=== PATIENT | female | born 1975 | race Caucasian/White ===

== ENCOUNTER 2016-08-20 17:55 | Emergency (ER) | payer OTHER ==
[~2016-08-20] VITALS: Ht 157.5 cm; Wt 54.4 kg
[2016-08-20 20:02] LABS: ABSOLUTE BASOPHIL COUNT 0 /CUMM (0.0-0.2); ABSOLUTE EOSINOPHIL COUNT 0 /CUMM (0.0-0.7); ABSOLUTE GRANULOCYTE CT 6.2 /CUMM (1.4-6.5); ABSOLUTE LYMPH COUNT 1.3 /CUMM (1.2-3.4); ABSOLUTE MONOCYTE COUNT 0.6 /CUMM (0.10-0.60); BASOPHIL % 0.1 % (0.0-2.0); EOSINOPHIL % 0.3 % (0-5); GRANULOCYTE % 76.4 % (42.2-75.2); HEMATOCRIT 38.4 % (37-47); MEAN CORPUSCULAR HGB 31.7 PG (27.0-31.0); MEAN CORPUSCULAR HGB CONC 33.4 G/DL (33.0-37.0); MEAN CORPUSCULAR VOLUME 95.1 FL (81.0-99.0); MEAN PLATELET VOLUME 6.8 FL (7.4-10.4); PLATELET COUNT 362 /CUMM (130-400); RBC DISTRIBUTION WIDTH 12.3 % (11.5-14.5); RED BLOOD CELL CT 4.04 /CUMM (4.20-5.40); WHITE BLOOD CELL COUNT 8.1 /CUMM (4.8-10.8)
--- NOTE | 2016-08-20 22:09 | CT SCAN REPORT ---
EXAMINATION: CT ABDOMEN AND PELVIS WITH CONTRAST CLINICAL INFORMATION: 40-year-old female patient with guarding and abdominal pain. Decreased appetite. COMPARISON: None TECHNIQUE: Multidetector volumetric imaging was performed of the abdomen and pelvis before and after the IV administration of 95 mL of Optiray 320 intravenous contrast. Sagittal and coronal reformatted images were obtained on the technologist's workstation. DLP: 242 mGy-cm FINDINGS: DIGITAL DATA ANALYST: There is moderate gaseous distention of the transverse colon. No intestinal obstruction or free air is suspected. Lung bases are clear. There is abnormal. LUNG BASES: The visualized lung bases are unremarkable. LIVER, GALLBLADDER, AND BILIARY TREE: The liver is normal in size, shape, and attenuation. No focal hepatic lesion or biliary ductal dilatation is present. The gallbladder is normal. PANCREAS: Unremarkable. SPLEEN: Unremarkable. ADRENAL GLANDS: Unremarkable. KIDNEYS AND URETERS: The kidneys are normal in size, shape, and attenuation. No hydronephrosis, hydroureter, or calculi seen. No perinephric stranding. BLADDER: Unremarkable. GASTROINTESTINAL TRACT: The small and large bowel are unremarkable. No convincing evidence of appendicitis. ABDOMINAL WALL: No significant hernia is appreciated. A tiny fat-containing umbilical hernia is present. LYMPH NODES: Normal. VASCULAR: Unremarkable. PELVIC VISCERA: Unremarkable. A small amount of free fluid in the cul-de-sac is felt to be physiologic. OSSEOUS STRUCTURES: Unremarkable. Small bone islands of both femoral necks. IMPRESSION: No significant abnormality.
--- NOTE | 2016-08-20 22:56 | ED GI/GU/ABDOMINAL COMPLAINT ---
History of Present Illness General Chief Complaint: Abdominal Pain/Flank Pain Stated Complaint: RT SIDED ABD PAIN Source: patient, family Exam Limitations: no limitations Vital Signs & Intake/Output Vital Signs & Intake/Output Vital Signs Date Time Temp Pulse Resp B/P B/P Pulse O2 O2 Flow FiO2 Mean Ox Delivery Rate 08/20 2259 98.4 95 17 131/79 97 Room Air 08/20 1759 98.5 96 16 133/80 98 Room Air ED Intake and Output 08/21 0000 08/20 1200 Intake Total Output Total Balance Patient 120 lb Weight Allergies Coded Allergies: erythromycin base (RASH 08/20/16) Reconcile Medications No Known Home Medications Triage Note: PT COMPLAINS OF INTERMITTANT R SIDE ABD PAIN THAT RADIATES INTO HER BACK THAT HAS BEEN COMING AND GOING FOR THE PAST WEEK, DENIES N/V/D. STATES THAT 2 DAYS AGO SHE HAD A LOW GRADE FEVER, AFEBRILE AT THIS TIME. DENIES URINARY SYMPTOMS Triage Nurses Notes Reviewed? yes ? n Is pt currently ? No HPI: Ms. Main is a 40 yo f w/ no significant PMH presenting to the emergency department for abdominal pain. Patient states Pain Has Been Ongoing for Approximately 1 Week. Pain Is a Somewhat Chronic Dull Ache in the Right Lower Quadrant However It Has Episodes Where It Becomes Intermittently Sharp and More Severe. She states she saw her primary care doctor who ordered some basic labs. Labs were otherwise unremarkable. Last night the pain became so severe while she was at rest that she was in position unable to move. Patient feels when she presses on the right upper quadrant/right flank, this worsens the pain. Normal bowel movements over the past few days with no blood in the stool. No diarrhea. No nausea or vomiting. She states her primary care doctor told her that she was able to palpate either her appendix or a ovarian cyst in the right lower quadrant. (NICOLE COUGHLIN MD) Past History Travel History Traveled to [place] past 21 day No Medical History Any Pertinent Medical History? see below for history Neurological: NONE EENT: NONE Cardiovascular: NONE Respiratory: NONE Gastrointestinal: NONE Hepatic: NONE Renal: NONE Musculoskeletal: NONE Psychiatric: NONE Endocrine: NONE Surgical History Surgical History: none Psychosocial History What is your primary language Latvian Tobacco Use: Never used ETOH Use: denies use Illicit Drug Use: denies illicit drug use Family History Hx Contributory? No (NICOLE COUGHLIN MD) Review of Systems Review of Systems Constitutional: Reports: see HPI. EENTM: Reports: no symptoms. Respiratory: Reports: no symptoms. Cardiovascular: Reports: no symptoms. GI: Reports: abdominal pain, nausea. Genitourinary: Reports: no symptoms. Musculoskeletal: Reports: no symptoms. Skin: Reports: no symptoms. Neurological/Psychological: Reports: no symptoms. Hematologic/Endocrine: Reports: no symptoms. Immunologic/Allergic: Reports: no symptoms. All Other Systems: Reviewed and Negative (NICOLE COUGHLIN MD) Physical Exam Physical Exam General Appearance: well developed/nourished, no apparent distress, alert, awake , mild distress Head: atraumatic, normal appearance Eyes: Bilateral: normal appearance, PERRL, EOMI, normal inspection. Ears, Nose, Throat, Mouth: hearing grossly normal, moist mucous membrane Neck: normal inspection, supple, full range of motion Respiratory: normal breath sounds, chest non-tender, no respiratory distress Cardiovascular: regular rate/rhythm Gastrointestinal: normal bowel sounds, soft, RLQ pain w/ voluntary guarding. no rebound. not peritoneal. Back: normal inspection, normal range of motion Extremities: normal range of motion Neurologic/Psych: no motor/sensory deficits, awake, alert, oriented x 3, normal gait, normal mood/affect Skin: intact, normal color, warm/dry Core Measures ACS in differential dx? No Severe Sepsis Present: No Septic Shock Present: No (NICOLE COUGHLIN MD) Progress Differential Diagnosis: appendicitis, bowel obstruction, cholecystitis, diverticulitis, ovarian cyst, ovarian torsion, PID/cervicitis, PUD/GERD, SBO, threatened AB, UTI/pyelo Plan of Care: Orders Procedure Date/time Status URINE 08/20 1801 Complete URINALYSIS 08/20 1757 Complete COMPREHENSIVE METABOLIC PANEL 08/20 1757 Complete CBC WITHOUT DIFFERENTIAL 08/20 1757 Complete Laboratory Tests 08/20/161955: Anion Gap 14, Estimated GFR > 60, BUN/Creatinine Ratio 11.7, Glucose 111 H, Calcium 9.9, Total Bilirubin 0.4, AST 19, ALT 32, Alkaline Phosphatase 54, Total Protein 8.1, Albumin 5.1 H, Globulin 3.0, Albumin/Globulin Ratio 1.7, CBC w Diff NO MAN DIFF REQ, RBC 4.04 L, MCV 95.1, MCH 31.7 H, RDW 12.3, MPV 6.8 L, Gran % 76.4 H, Lymphocytes % 16.3 L, Monocytes % 6.9, Eosinophils % 0.3, Basophils % 0.1, Absolute Granulocytes 6.2, Absolute Lymphocytes 1.3, Absolute Monocytes 0.6, Absolute Eosinophils 0, Absolute Basophils 0, PUBS MCHC 33.4 08/20/161810: Urine Test NEGATIVE 08/20/161810: Urine Color YEL, Urine Clarity CLEAR, Urine pH 6.0, Ur Specific [place] <= 1.005 , Urine Protein NEG, Urine Ketones NEG, Urine Nitrite NEG, Urine Bilirubin NEG, Urine Urobilinogen 0.2, Ur Leukocyte Esterase NEG, Ur Microscopic SEDIMENT EXAMINED, Urine RBC 1-3, Ur Epithelial Cells RARE, Urine Hemoglobin TRACE-INTACT , Urine Glucose NEG The right healthy 40-year-old female with 1 week of intermittent abdominal pain with intermittent severity. Pain is primarily located in the right lower quadrant. She does have voluntary guarding but no rebound. Labs are otherwise unremarkable. UA is also otherwise unremarkable. Urine also negative. Given the degree of pain, patient's will undergo a CT abdomen and pelvis with IV contrast. CT abdomen and pelvis is negative for acute appendicitis or other acute pathology. No comment on ovarian pathology. Spoke to the radiologist to indicated that it is unlikely that the patient had any ovarian cyst as everything within the lower pelvis is quite close to each other. Patient seems somewhat unsatisfied with the results of the CT scan. Printed out the report of the CT scan from the radiologist for her to take to her primary care doctor. She would like to follow up with her NATURAL G[employer] T[employer]ATING UNIT OPERATOR to pursue the ovarian pathology. I explained that we are unable to perform an ultrasound 8 knee pain. However I did not feel that her pain and quality of pain was consistent with ovarian torsion or ovarian cysts. Patient given return precautions. She understands and will return if her symptoms worsen. For now she plans on seeing her primary care doctor and [employer] G[employer] T[employer]ATING [employer]IT OPERATOR for follow-up. (NICOLE COUGHLIN MD) Diagnostic Imaging: Viewed by Me: CT Scan. Discussed w/RAD: CT Scan. Radiology Impression: no acute abnormality Initial ED EKG: none (NICOLE COUGHLIN MD) Departure Departure Time of Disposition: 2253 Disposition: HOME OR SELF CARE Condition: Stable Clinical Impression Primary Impression: RLQ abdominal pain Ruled Out Impressions: Abdominal pain Referrals: TIA SUBRAMANIAN (PCP/Family) Additional Instructions: Please use colace or senna for stool softener and drink prune juice or extra fiber. Drink plenty of fluids. If you are unable to keep down food, have worsening pain or any other concerning symptoms, please return to the ED for evaluation. Otherwise, you can follow up with your primary care doctor or obgyn as needed. Departure Forms: Customer Survey General Discharge Information Prescriptions: Current Visit Scripts No Known Home Medications (MADYSON STOCKTON,NICOLE) PA/USED CAR MAKE READY MECHANIC Co-Sign Statement Statement: ED Attending supervision documentation- [] I saw and evaluated the patient. I have also reviewed all the pertinent lab results and diagnostic results. I agree with the findings and the plan of care as documented in the PA's/USED CAR MAKE READY MECHANIC's documentation. [x] I have reviewed the ED Record and agree with the PA's/USED CAR MAKE READY MECHANIC's documentation. [] Additions or exceptions (if any) to the PAs/USED CAR MAKE READY MECHANIC's note and plan are summarized below: [] (KAYLI STOCKTON,DANNY [place])
[2016-08-20 22:59] VITALS: BP 131/79
== END 2016-08-20 23:00 ==
LOC: ERH 17:55
PROVIDERS: Emergency Medicine
DX: R10.31 Right lower quadrant pain (principal)
CPT/HCPCS: 74177; 81001; 81025